=== PATIENT | female | born 1970 | race Two or more races ===

== ENCOUNTER 2025-07-14 03:55 | Emergency (ER) | payer MEDICAID, OTHER ==
[~2025-07-14] VITALS: Ht 154.9 cm; Wt 93.2 kg
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
[2025-07-14 04:50] VITALS: BP 149/83; PULSE 81; RESP 18; TEMP 98.4; O2SAT 97
[2025-07-14] MEDS: KETOROLAC TROMETH 60MG/2ML VIAL IM ONE (04:58)
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
[2025-07-14] MEDS ORDERED: AUG875T PO (05:34)
[2025-07-14] MEDS ORDERED: METH4PAK PO (05:34)
== END 2025-07-14 05:44 | disposition home or self-care (01) ==
LOC: ER 03:55
DX: S06.0X0A Concussion without loss of consciousness, initial encounter (principal); S13.4XXA Sprain of ligaments of cervical spine, initial encounter; S39.012A Strain of muscle, fascia and tendon of lower back, initial encounter; S09.8XXA Other specified injuries of head, initial encounter; J32.4 Chronic pansinusitis; Y08.89XA Assault by other specified means, initial encounter; Y93.89 Activity, other specified; Y92.89 Other specified places as the place of occurrence of the external cause; Y99.8 Other external cause status
CPT/HCPCS: 70450; 72125; 72131; 96372; 99285; J1885